=== PATIENT | male | born 1960 | race Caucasian/White ===

== ENCOUNTER 2021-06-09 15:14 | Emergency (ER) | payer OTHER ==
[~2021-06-09] VITALS: Ht 182.9 cm; Wt 108.9 kg
[2021-06-09] MEDS ORDERED: CEPHALEXIN500 MG PO ×2 (17:45→18:08)
[2021-06-09 18:06] VITALS: BP 138/82
== END 2021-06-09 18:05 | disposition home or self-care (01) ==
LOC: ER 15:14
DX: S01.81XA Laceration without foreign body of other part of head, initial encounter (principal); E78.00 Pure hypercholesterolemia, unspecified; E03.9 Hypothyroidism, unspecified; Z88.0 Allergy status to penicillin; W01.0XXA Fall on same level from slipping, tripping and stumbling without subsequent striking against object, initial encounter; Y93.89 Activity, other specified; Y92.89 Other specified places as the place of occurrence of the external cause; Y99.8 Other external cause status